=== PATIENT | male | born 1955 | race Caucasian/White ===

== ENCOUNTER → 2021-03-23 | Outpatient (CLI) | payer OTHER ==
[2021-03-24 01:01] LABS: BASOPHIL % 0.3 % (0.0-0.2); EOSINOPHIL # 0.1 10^3/uL (0.0-0.2); EOSINOPHIL % 0.7 % (0.0-5.0); LYMPHOCYTES # 1.93 10^3/uL1 (1.0-4.8); LYMPHOCYTES % 26.7 % (24.0-44.0); MEAN CORP HGB 31.8 pg (26-34); MONOCYTES # 0.8 10^3/uL (0.3-0.8); MONOCYTES % 11.5 % (5.0-12.0); NEUTROPHIL # 4.4 10^3/uL (1.8-7.7); NEUTROPHILS % 60.5 % (41.0-85.0); PLATELET COUNT 253 10^3/uL (150-400); RED CELL DISTRIBUTION WIDTH 14.7 % (11.5-14.5)
[2021-03-24 01:07] LABS: BILIRUBIN,URINE NEGATIVE (NEGATIVE); UROBILINOGEN,URINE 0.2 E.U./dL (0.2)
[2021-03-24 01:21] LABS: CARBON DIOXIDE 21.7 mmol/L (20.0-32)
== END | disposition home or self-care (01) ==
LOC: NPLAB 23:39
PROVIDERS: ATTEND Internal Medicine
DX: F25.9 Schizoaffective disorder, unspecified (principal); F31.0 Bipolar disorder, current episode hypomanic; F19.10 Other psychoactive substance abuse, uncomplicated
CPT/HCPCS: 80053; 81003; 85025; 87086